=== PATIENT | male | born 1970 | race American Indian/Alaskan Native ===

== ENCOUNTER 2022-10-28 11:55 | Emergency (ER) | payer OTHER ==
[~2022-10-28] VITALS: Ht 185.4 cm; Wt 80.3 kg
[~2022-10-28 11:55] MED LIST: AMLODIPINE BESYL5 MG PO; CEPHALEXIN500 MG PO; DOXYCYCLINE HY100 MG PO; METHADOSE40 MG PO; NICOTINE1 EAC2 TD; OXYCODONE-ACET1 EAC1 PO; SODIUM BICARBO650 MG PO
== END 2022-10-28 13:20 | disposition home or self-care (01) ==
LOC: ED 11:55
DX: L60.0 Ingrowing nail (principal); Z88.8 Allergy status to other drugs, medicaments and biological substances; Z79.899 Other long term (current) drug therapy
CPT/HCPCS: 99283

== ENCOUNTER 2022-10-31 02:03 | Emergency (ER) | payer OTHER ==
[~2022-10-31] VITALS: Ht 185.4 cm; Wt 80.1 kg
--- OUTSIDE RECORDS SUMMARY | 2022-10-31 02:10 | XMS ---
PreManage Notification: SERG ROMAN Security Operations And Maintenance Manager Events No recent Security Events currently on file CRITERIA MET - [facility] - 2 Visits in 30 Days CARE PROVIDERS -Heather- Dentist: Dynamics Ax Developer [facility] PHONE: [phone] Cynthia has no Care Guidelines for this patient. EDarío VISIT COUNT (12 MO.) 1 [facility] [address] TOTAL 7 NOTE: Visits indicate total known visits. ED/UCC VISIT TRACKING (12 MO.) 10/31/2022 02:04 [facility] [place] TYPE: Emergency COMPLAINT: - N/V 10/28/2022 11:55 [facility] [place] TYPE: Emergency COMPLAINT: - L FOOT BIG TOE PAIN 09/05/2022 14:54 [facility] [place] TYPE: Emergency COMPLAINT: - LEG PAIN 03/20/2022 19:[address] [facility] [place] TYPE: Emergency COMPLAINT: - PAINFUL LEGS DIAGNOSES: - Cellulitis of left lower limb - Allergy status to other drugs, medicaments and biological substances - Chronic kidney disease, unspecified - Pain in left leg - Allergy status to analgesic agent 01/02/2022 17:43 [facility] [place] TYPE: Emergency DIAGNOSES: - Pruritis - Skin Redness (Due To Rash) - Cellulitis, unspecified 01/02/2022 12:18 [facility] [place] TYPE: Emergency DIAGNOSES: - Procedure and treatment not carried out due to patient leaving prior to being seen by health care provider - Wound Check 12/19/2021 22:56 [facility] [place] TYPE: Emergency COMPLAINT: - Poisoning by other opioids, accidental (unintentional), initial encounter DIAGNOSES: 1. Poisoning by other opioids, accidental (unintentional), initial encounter 2. Nicotine dependence, cigarettes, uncomplicated INPATIENT VISIT TRACKING (12 MO.) 09/07/2022 13:[address] [facility] [place] TYPE: Medical Surgical COMPLAINT: - CELLULITIS DIAGNOSES: - Opioid use, unspecified, uncomplicated - Chronic kidney disease, unspecified - Opioid use, unspecified, uncomplicated - Other specified postprocedural states - Anemia in chronic kidney disease - Other stimulant abuse, uncomplicated - COVID-19 - Anemia in chronic kidney disease - Cellulitis of left lower limb - Cellulitis of right lower limb - Venous insufficiency (chronic) (peripheral) - Other specified postprocedural states - Allergy status to other drugs, medicaments and biological substances - Allergy status to other drugs, medicaments and biological substances - Acidosis, unspecified - Other halfway (current) drug therapy - COVID-19 - Acute kidney failure, unspecified - Chronic kidney disease, unspecified - Hypertensive chronic kidney disease with stage 1 through stage 4 chronic kidney disease, or unspecified chronic kidney disease - Cellulitis of left lower limb - Other stimulant abuse, uncomplicated - Other halfway (current) drug therapy - Venous insufficiency (chronic) (peripheral) - Acidosis, unspecified - Hypertensive chronic kidney disease with stage 1 through stage 4 chronic kidney disease, or unspecified chronic kidney disease - Acute kidney failure, unspecified [email or web address]
[2022-10-31] MEDS ORDERED: AMLODIPINE BESYL5 MG PO (02:16)
== END 2022-10-31 05:45 | disposition home or self-care (01) ==
LOC: ED 02:03
DX: R51.9 Headache, unspecified (principal); I12.9 Hypertensive chronic kidney disease with stage 1 through stage 4 chronic kidney disease, or unspecified chronic kidney disease; N18.9 Chronic kidney disease, unspecified; Z91.199 Patient's noncompliance with other medical treatment and regimen due to unspecified reason; Z88.8 Allergy status to other drugs, medicaments and biological substances; Z79.899 Other long term (current) drug therapy
CPT/HCPCS: 36415; 70450; 80053; 85025; 85060; 96361; 96374; 99284-25; A9270; J2765; J7030

== ENCOUNTER 2023-11-18 06:36 | Emergency (ER) | payer OTHER ==
[~2023-11-18] VITALS: Ht 185.4 cm; Wt 97.0 kg
[2023-11-18] MEDS ORDERED: NALOXONE HCL 2 MG/2 ML SYR IV ONE (06:40)
--- OUTSIDE RECORDS SUMMARY | 2023-11-18 06:40 | XMS ---
PreManage Notification: SERG ROMAN Security Cleaners Events No recent Security Events currently on file CRITERIA MET - [facility] - 2 Visits in 30 Days - [facility] - 3 Facilities in 90 Days CARE PROVIDERS -Heather- Dentist: Zinc Plater [facility] PHONE: [phone] BRUCE KAMINSIK Physician Warp Splitter Current PHONE: Unknown Cynthia has no Care Guidelines for this patient. EDarío VISIT COUNT (12 MO.) [address] TOTAL 3 NOTE: Visits indicate total known visits. ED/UCC VISIT TRACKING (12 MO.) 11/18/2023 06:37 [facility] TYPE: Emergency COMPLAINT: - POSS OD 10/24/2023 11:58 [facility] [place] TYPE: Emergency DIAGNOSES: - Fluid overload, unspecified - Hyperkalemia - Unspecified kidney failure - GENERAL 10/16/2023 23:42 [facility] [place] TYPE: Emergency COMPLAINT: - ABD PAIN DIAGNOSES: - Abnormal electrocardiogram [ECG] [EKG] - Acute kidney failure, unspecified - Allergy status to analgesic agent - Allergy status to other drugs, medicaments and biological substances - Chest pain, unspecified - Essential (primary) hypertension - Hyperkalemia - Other intermodal owner operator truck driver (current) drug therapy - Prediabetes - Weakness INPATIENT VISIT TRACKING (12 MO.) 10/17/2023 07:10 [facility] [place] TYPE: [facility] DIAGNOSES: [id number]. End stage renal disease [id number]. VICKIE [id number]. End stage renal disease 10[facility]10/2023 11:32 [facility] TYPE: Medical Surgical DIAGNOSES: - Acidosis, unspecified - Acute kidney failure with tubular necrosis - Acute kidney failure, unspecified - Bacteremia - Chronic kidney disease, unspecified - Hyperkalemia - Other forms of acute pericarditis - Other toxic encephalopathy - Pericarditis in diseases classified elsewhere - Pneumonia, unspecified organism - Severe sepsis without septic shock - ST elevation (STEMI) myocardial infarction of unspecified site - Streptococcal sepsis, unspecified - Unspecified kidney failure - Unspecified streptococcus as the cause of diseases classified elsewhere [email or web address]
[2023-11-18] MEDS ORDERED: propofoL 100 ML IV ONE (07:12)
[2023-11-18] MEDS ORDERED: DEXTROSE 5% IV SCH (07:15)
[2023-11-18] MEDS ORDERED: ETOMIDATE 40 MG/20 ML VIAL IV ONE (07:15)
[2023-11-18] MEDS ORDERED: propofoL 100 ML IV SCH (07:15)
[2023-11-18] MEDS ORDERED: ROCURONIUM BROMIDE 50 MG/5 ML VIAL IV ONE (07:15)
[2023-11-18] MEDS ORDERED: NALOXONE HCL IV SCH (07:15)
[2023-11-18 07:21] LABS: BASOPHILS 0.8 % (0-2); EOSINOPHILS 1.3 % (0-6); HEMATOCRIT 25.4 % (35.0-50.0); HEMOGLOBIN 8.1 g/dL (12.0-18.0); MCH 26.1 (27-36); MCHC 31.9 g/dl (30-36); MCV 81.8 fl (81-99); MONOCYTES 7.2 % (0-12); NEUTROPHILS 74.7 % (39-80); PH, VENOUS 7.456 (7.31-7.41); PLATELET COUNT 301 K/uL (140-440); RBC 3.11 M/ul (4.3-5.7); RDW 19.3 (10.5-15.0)
[2023-11-18 07:34] LABS: ACETAMINOPHEN 0 ug/mL (10-30); ALBUMIN 1.7 g/dL (3.4-5.0); ALBUMIN/GLOBULIN RATIO 0.27 (1.1-2.4); ALCOHOL, MEDICAL <3 ng/dL (<3); ALKALINE PHOSPHATASE 83 U/L (46-116); ALT (SGPT) 8 U/L (14-59); ANION GAP 18.7 (7-21); AST (SGOT) 21 U/L (15-37); BILIRUBIN, TOTAL 0.5 ng/dL (0.2-1.0); CALCIUM 7.3 mg/dL (8.5-10.1); CARBON DIOXIDE 26 mmol/L (21-32); CHLORIDE 99 mmol/L (98-107); CREATININE, SERUM 9.63 mg/dL (0.70-1.30); GLOMERULAR FILTRATION RATE,EST 6 mL/min (>60); POTASSIUM 5.7 mmol/L (3.5-5.1); PROTEIN, TOTAL 7.9 g/dL (6.4-8.2); SALICYLATE 1.2 mg/dL (2.8-20.0); UREA NITROGEN 54 mg/dL (7-18)
[2023-11-18] MEDS ORDERED: LIDOCAINE 2% VISCOUS 6 ML SYR TOP ONE (07:45)
[2023-11-18 08:02] LABS: BILIRUBIN, URINE NEGATIVE (negative); BLOOD/HGB, URINE TRACE-I (Negative); KETONE, URINE TRACE (Negative); LEUK ESTERASE, URINE NEGATIVE (negative); NITRITE, URINE NEGATIVE (negative)
[2023-11-18 08:04] LABS: MAGNESIUM 1.9 mg/dL (1.8-2.4); PHOSPHORUS, INORGANIC 7.1 mg/dL (2.5-4.9)
[2023-11-18 08:10] LABS: BASE EXCESS, BLOOD GAS 1.1 mmol/L (-2-2); HCO3, BLOOD GAS 27.5 mmol/L (22-26); O2 SATURATION, BLOOD GAS 96.6 % (95.0-100.0); PCO2, BLOOD GAS 49.1 mmHg (35-45); PH, BLOOD GAS 7.35 (7.35-7.45); TOTAL CO2, BLOOD GAS 29.1
[2023-11-18] MEDS ORDERED: NALOXONE HCL4 MG NS (08:13)
[2023-11-18] MEDS ORDERED: AMLODIPINE BESY10 MG PO (08:13)
[2023-11-18] MEDS ORDERED: BRIXADI8 MG/0.16 (08:14)
[2023-11-18] MEDS ORDERED: RENVELA800 MG PO (08:14)
[2023-11-18] MEDS ORDERED: LOPERAMIDE2 M1 PO (08:15)
[2023-11-18 08:16] LABS: CRYSTALS, URINE NONE SEEN (0-1+)
[2023-11-18] MEDS ORDERED: MIRCERA30 MCG/0.3 INJ (08:16)
[2023-11-18 08:17] LABS: INFLUENZA B NAA NEGATIVE (NEGATIVE); RESPIRATORY SYNCYTIAL VIR NAA NEGATIVE (NEGATIVE)
[2023-11-18 08:17] LABS: BACTERIA, URINE RARE /hpf (negative); CASTS, URINE NONE SEEN \\lpf; COLLECTION TYPE, URINE CLEAN CATCH; REFLEX CULTURE, URINE Yes (No)
[2023-11-18 09:09] LABS: AMPHETAMINES, URINE NEGATIVE (NEGATIVE); BARBITURATES, URINE NEGATIVE (NEGATIVE); BENZODIAZEPINE, URINE NEGATIVE (NEGATIVE); CANNABINOID, URINE NEGATIVE (NEGATIVE); COCAINE, URINE NEGATIVE (NEGATIVE); ECSTASY, URINE NEGATIVE (NEGATIVE); FENTANYL, URINE POSITIVE (NEGATIVE); METHADONE, URINE NEGATIVE (NEGATIVE); OPIATES, URINE NEGATIVE (NEGATIVE); OXYCODONE, URINE NEGATIVE (NEGATIVE); PHENCYCLIDINE, URINE NEGATIVE (NEGATIVE)
[2023-11-18 09:21] LABS: BUPRENORPHINE, URINE NEGATIVE (NEGATIVE)
[2023-11-18] MEDS ORDERED: propofoL 200 MG/20 ML VIAL ONE (10:00)
[2023-11-18] MEDS ORDERED: propofoL 200 MG/20 ML VIAL IV ONE (10:15)
[2023-11-18] MEDS ORDERED: CALCIUM CHLORIDE 1,000 MG/10 ML SYR IV ONE (10:30)
[2023-11-18 11:05] VITALS: BP 98/77
--- NOTE | 2023-11-18 14:59 | EKG ---
[facility] [address] [facility] [place] [address] Signed Sinus tachycardia Nonspecific ST and T wave abnormality Abnormal ECG When compared with ECG of 16-OCT-2023 23:55, [place] interval has decreased ST no longer elevated in Inferior leads Non-specific change in ST segment in Lateral leads Nonspecific T wave abnormality now evident in Inferior leads Nonspecific T wave abnormality now evident in Lateral leads Confirmed by GELY GUAN MD ([id number]) on 11/18/2023 2:58:57 PM Electronically Signed By: GELY GUAN 11/18/23 1459 PATIENT NAME: SERG ROMAN MAYCO Electrocardiogram DATE OF : 72 PHYSICIAN: GELY GUAN REPORT #: [id number] REPORT IS CONFIDENTIAL AND NOT TO BE RELEASED WITHOUT AUTHORIZATION
== END 2023-11-18 11:05 | disposition short-term general hospital (02) ==
LOC: ED 06:36
PROVIDERS: Emergency Medicine; Family Medicine
DX: T40.411A Poisoning by fentanyl or fentanyl analogs, accidental (unintentional), initial encounter (principal); N19 Unspecified kidney failure; R06.03 Acute respiratory distress; J98.11 Atelectasis; J90 Pleural effusion, not elsewhere classified; E87.5 Hyperkalemia; I10 Essential (primary) hypertension; Z88.8 Allergy status to other drugs, medicaments and biological substances; Z88.6 Allergy status to analgesic agent; Z79.899 Other long term (current) drug therapy
CPT/HCPCS: 31500; 36415; 36556; 36600; 51702; 71045; 80053; 80307; 81001; 82803; 83605; 83735; 83880; 84100; 84484; 85025; 87040; 87088; 87502; 93005; 93010; 99285-25; G0480; J2310; J2704; J7060; U0002

== ENCOUNTER 2023-11-23 09:36 | Emergency (ER) | payer OTHER ==
[~2023-11-23] VITALS: Ht 185.4 cm; Wt 80.0 kg
[~2023-11-23 09:36] MED LIST changes: +AMLODIPINE BESY10 MG PO; +BRIXADI8 MG/0.16; +LOPERAMIDE2 M1 PO; +MIRCERA30 MCG/0.3 INJ; +NALOXONE HCL4 MG NS; +RENVELA800 MG PO
[2023-11-23 09:53] LABS: BASOPHILS 0.4 % (0-2); EOSINOPHILS 3.7 % (0-6); HEMATOCRIT 26.6 % (35.0-50.0); HEMOGLOBIN 7.9 g/dL (12.0-18.0); LYMPHOCYTES 34.1 % (24-44); MCH 25.3 (27-36); MCHC 29.8 g/dl (30-36); MONOCYTES 4.4 % (0-12); NEUTROPHILS 57.4 % (39-80); PLATELET COUNT 333 K/uL (140-440); RBC 3.13 M/ul (4.3-5.7); RDW 20.2 (10.5-15.0)
[2023-11-23 10:12] LABS: ALBUMIN 1.7 g/dL (3.4-5.0); ALCOHOL, MEDICAL <3 ng/dL (<3); ALKALINE PHOSPHATASE 74 U/L (46-116); ALT (SGPT) 17 U/L (14-59); AST (SGOT) 48 U/L (15-37); BILIRUBIN, TOTAL 0.6 ng/dL (0.2-1.0); BUN/CREATININE RATIO 4.82 (6.0-28.6); CALCIUM 6.9 mg/dL (8.5-10.1); CARBON DIOXIDE 19 mmol/L (21-32); CREATININE, SERUM 13.05 mg/dL (0.70-1.30); GLOMERULAR FILTRATION RATE,EST 4 mL/min (>60); MAGNESIUM 2.3 mg/dL (1.8-2.4); PROTEIN, TOTAL 7.4 g/dL (6.4-8.2); UREA NITROGEN 63 mg/dL (7-18)
[2023-11-23 10:21] LABS: ANION GAP 26.8 (7-21); CHLORIDE 101 mmol/L (98-107); POTASSIUM 5.8 mmol/L (3.5-5.1)
[2023-11-23 10:32] LABS: BASE EXCESS, BLOOD GAS -8.1 mmol/L (-2-2); HCO3, BLOOD GAS 19.4 mmol/L (22-26); O2 SATURATION, BLOOD GAS 94.9 % (95.0-100.0); PCO2, BLOOD GAS 44.6 mmHg (35-45); PH, BLOOD GAS 7.24 (7.35-7.45); PO2, BLOOD GAS 82 mmHg (80-100); TOTAL CO2, BLOOD GAS 20.9
[2023-11-23 10:33] LABS: OXYGEN RECEIVED, BLOOD GAS 40%
[2023-11-23 10:40] LABS: INFLUENZA B NAA NEGATIVE (NEGATIVE); RESPIRATORY SYNCYTIAL VIR NAA NEGATIVE (NEGATIVE)
[2023-11-23] MEDS ORDERED: LACTATED RINGER'S 1,000 ML IV ONE (11:00)
[2023-11-23 11:13] LABS: ANION GAP 24.6 (7-21); BUN/CREATININE RATIO 4.97 (6.0-28.6); CALCIUM 6.7 mg/dL (8.5-10.1); CREATININE, SERUM 12.87 mg/dL (0.70-1.30)
[2023-11-23 11:24] LABS: POTASSIUM 6.6 mmol/L (3.5-5.1)
[2023-11-23] MEDS ORDERED: SODIUM POLYSTYRENE SULFONATE 15 GM/60 ML UDC PO ONE (11:30)
[2023-11-23] MEDS ORDERED: SODIUM BICARBONATE 50 MEQ/50 ML SYR IV ONE (11:30)
[2023-11-23] MEDS ORDERED: CALCIUM CHLORIDE 1,000 MG/10 ML SYR IV ONE (11:30)
[2023-11-23] MEDS ORDERED: DEXTROSE 50% 50 ML SYR IV ONE (11:30)
[2023-11-23] MEDS ORDERED: Insulin Regular, Human 100 UNIT/ML ML IV ONE (11:30)
--- OUTSIDE RECORDS SUMMARY | 2023-11-23 11:34 | XMS ---
PreManage Notification: SERG ROMAN Security Supervisor Hardboard Events No recent Security Events currently on file CRITERIA MET - [facility] - 2 Visits in 30 Days - [facility] - 3 Facilities in 90 Days CARE PROVIDERS -Heather- Dentist: Learning Disabilities Resource Teacher [facility] PHONE: [phone] BRUCE KAMINSKI Physician High Climber Current PHONE: Unknown Cynthia has no Care Guidelines for this patient. EDarío VISIT COUNT (12 MO.) [address] TOTAL 4 NOTE: Visits indicate total known visits. ED/UCC VISIT TRACKING (12 MO.) 11/23/2023 09:37 [facility] [place] TYPE: Emergency 11/18/2023 06:37 [facility] [place] TYPE: Emergency COMPLAINT: - POSS OD DIAGNOSES: - Acute respiratory distress - Allergy status to analgesic agent - Allergy status to other drugs, medicaments and biological substances - Atelectasis - Essential (primary) hypertension - Hyperkalemia - Other mcfp (current) drug therapy - Pleural effusion, not elsewhere classified - Poisoning by fentanyl or fentanyl analogs, accidental (unintentional), initial encounter - Somnolence - Unspecified kidney failure 10/24/2023 11:58 [facility] [place] TYPE: Emergency DIAGNOSES: - [...] Essential (primary) hypertension - Hyperkalemia - Other mcfp (current) drug therapy - Prediabetes - Weakness INPATIENT VISIT TRACKING (12 MO.) 11/18/2023 12:56 [facility] COMPLAINT: - Fentanyl Overdose DIAGNOSES: - Fentanyl Overdose 10/17/2023 07:10 [facility] TYPE: [facility] DIAGNOSES: 10071. End stage renal disease 66957. VICKIE [address]. End stage renal disease 10/10/2023 11:32 [facility] Jasmyn RUIZ (Jasmyn Vines) TYPE: Medical Surgical DIAGNOSES: [...] as the cause of diseases classified elsewhere [email or web address]
[2023-11-23] MEDS ORDERED: SODIUM POLYSTYRENE SULFONATE 15 GM/60 ML UDC ONE (11:37)
[2023-11-23] MEDS ORDERED: propofoL 100 ML IV SCH (11:45)
[2023-11-23 12:31] LABS: BILIRUBIN, URINE NEGATIVE (negative); BLOOD/HGB, URINE TRACE-I (Negative); KETONE, URINE SMALL (Negative); LEUK ESTERASE, URINE NEGATIVE (negative); NITRITE, URINE NEGATIVE (negative)
[2023-11-23] MEDS ORDERED: fentaNYL citrate 100 MCG/2 ML VIAL IV PRN (12:45)
[2023-11-23] MEDS ORDERED: fentaNYL citrate 500 MCG in DEXTROSE 5% 90 ML IV SCH (12:45)
[2023-11-23 12:46] LABS: BACTERIA, URINE 2+ /hpf (negative); EPITHELIAL CELLS, URINE SQUAMOUS 1+ /lpf (0-1+); REFLEX CULTURE, URINE No (No)
[2023-11-23 12:47] LABS: AMPHETAMINES, URINE POSITIVE (NEGATIVE); BARBITURATES, URINE NEGATIVE (NEGATIVE); BENZODIAZEPINE, URINE NEGATIVE (NEGATIVE); BUPRENORPHINE, URINE NEGATIVE (NEGATIVE); CANNABINOID, URINE NEGATIVE (NEGATIVE); COCAINE, URINE NEGATIVE (NEGATIVE); ECSTASY, URINE NEGATIVE (NEGATIVE); FENTANYL, URINE POSITIVE (NEGATIVE); METHADONE, URINE NEGATIVE (NEGATIVE); OPIATES, URINE NEGATIVE (NEGATIVE); OXYCODONE, URINE NEGATIVE (NEGATIVE); PHENCYCLIDINE, URINE NEGATIVE (NEGATIVE)
[2023-11-23 14:16] VITALS: BP 114/82
--- NOTE | 2023-11-24 06:59 | EKG ---
[facility] [address] [facility] [place] [address] Signed Normal sinus rhythm Incomplete right bundle branch block Nonspecific T wave abnormality Abnormal ECG When compared with ECG of 18-NOV-2023 07:35, Incomplete right bundle branch block is now present Confirmed by Madi Trejo ([id number]) on 11/24/2023 6:59:34 AM Electronically Signed By: MADI TREJO MD 11/24/23 0659 PATIENT NAME: AWAIS ROMANON MAYCO Electrocardiogram DATE OF : 72 PHYSICIAN: MADI TREJO MD REPORT #: [id number] REPORT IS CONFIDENTIAL AND NOT TO BE RELEASED WITHOUT AUTHORIZATION
== END 2023-11-23 13:43 | disposition short-term general hospital (02) ==
LOC: ED 09:36
PROVIDERS: Emergency Medicine
DX: E87.5 Hyperkalemia (principal); N19 Unspecified kidney failure; I10 Essential (primary) hypertension; Z86.74 Personal history of sudden cardiac arrest; Z88.8 Allergy status to other drugs, medicaments and biological substances; Z79.899 Other long term (current) drug therapy
CPT/HCPCS: 36415; 36556; 36600; 51702; 71045; 76942; 80048; 80053; 80307; 81001; 82800; 82803; 83605; 83735; 84484; 85025; 87502; 93005; 93010; 99285-25; G0480; J1815; J2704; J3010; J7121; U0002